=== PATIENT | female | born 1990 | race Caucasian/White ===

== ENCOUNTER 2016-11-15 10:39 | Emergency (ER) | payer OTHER, MEDICAID ==
[2016-11-15 11:02] LABS: BILIRUBIN,URINE NEGATIVE (NEGATIVE); PH,URINE 6.5 PH (5.0-7.5)
[2016-11-15 11:05] LABS: UA w/ MICROSCOPIC CHARGE YES
[2016-11-15 11:06] LABS: HCG UR QUAL NEGATIVE
[2016-11-15 11:14] LABS: WBC,URINE 0-3 /HPF (0-5)
[2016-11-15 11:15] LABS: UR CULTURE IF IND NOT INDICATED
[2016-11-15] MEDS ORDERED: cefTRIAXone 250 MG VIAL IM STA (12:12)
[2016-11-15] MEDS ORDERED: AZITHROMYCIN 250 MG TABLET PO STA (12:13)
[2016-11-15] MEDS ORDERED: AZITHROMYCIN 250 MG TABLET PO ONE (12:15)
[2016-11-15] MEDS ORDERED: LIDOCAINE 1% 2 ML VIAL ONE (12:16)
[2016-11-15] MEDS ORDERED: cefTRIAXone 250 MG VIAL ONE (12:16)
--- NOTE | 2016-11-15 12:21 | ED Physician Documentation ---
PD HPI FEMALE - Stated complaint Stated Complaint: FEMALE - Chief complaint Chief Complaint: General - History obtained from History obtained from: Patient - History of Present Illness Timing - onset: How many weeks ago (1) Timing - duration: Weeks (1) Timing - details: Gradual onset, Still present Associated symptoms: Pelvic pain, Vaginal bleeding, Vaginal discharge Contributing factors: IUD Similar symptoms before: Has not had sx before Recently seen: Not recently seen - Additional information Additional information: 26-year-old female has had an IUD in place for the past 3 years. She has recently developed a irregular vaginal bleeding and pain with intercourse including a sensation that the IUD is dislodged.She did have resolution of her bleeding and following that she has developed a brownish foul-smelling discharge. Review of Systems Constitutional: reports: Fatigue. denies: Fever, Chills Ears: denies: Ear pain Nose: denies: Congestion Throat: denies: Sore throat Respiratory: denies: Cough GI: reports: Abdominal Pain. denies: Vomiting : reports: Discharge. denies: Dysuria, Frequency Skin: denies: Rash Musculoskeletal: reports: Back pain. denies: Neck pain Neurologic: denies: Generalized weakness, Focal weakness PD PAST MEDICAL HISTORY - Past Medical History Past Medical History: Yes Cardiovascular: None Respiratory: Asthma Neuro: Headache/migraine Endocrine/Autoimmune: None GI: GERD, Ulcers : None HEENT: Chronic vision loss Psych: None Musculoskeletal: None Derm: None - Past Surgical History Past Surgical History: No General: EGD - Present Medications Home Medications: Ambulatory Orders Medication Instructions Recorded Confirmed Albuterol Sulfate [Albuterol 1 inh INH DAILY PRN 10/21/13 04/19/15 Sulfate Hfa] Ibuprofen [Motrin] 800 mg PO Q8H PRN #30 tablet 07/03/14 04/19/15 Copper [Paragard T 380-A] 1 each IY ONCE 04/19/15 04/19/15 Omeprazole 20 mg PO DAILY 04/19/15 04/19/15 Sumatriptan [Imitrex] 25 mg PO ONCE PRN 04/19/15 04/19/15 Oxycodone HCl/Acetaminophen 1 - 2 tab PO Q4H PRN #15 tablet 04/30/15 [Percocet 5-325 mg Tablet] oxyCODONE/ACET 5/325 [Percocet 5 1 each PO Q4-6H #14 tablet 11/15/16 mg/325 mg] - Allergies Allergies/Adverse Reactions: Allergies Allergy/AdvReac Type Severity Reaction Status Date / Time No Known Drug Allergies Allergy Verified 04/23/15 10:37 - Social History Does the pt smoke?: No Smoking Status: Never smoker Does the pt drink ETOH?: No Does the pt have substance abuse?: No - Immunizations Immunizations are current?: Yes - POLST Patient has POLST: No PD ED PE NORMAL - Vitals Vital signs reviewed: Yes (Normal) - General General: Alert and oriented X 3, Well developed/nourished, Other (The patient does appear to be in pain with hood maker tone and flattened affect) - HEENT HEENT: Atraumatic, PERRL - Respiratory Respiratory: No respiratory distress - Abdomen Abdomen: Soft, Other (There is marked suprapubic tenderness to palpation) - Female Female : Employee'S Representative present (Amber), Other (There is significant white discharge present and the string of the IUD is present as well this is grasped and the IUD is removed without difficulty there is some pain associated with this and slight bleeding. Samples of the discharge were obtained in a swab of the endocervix is obtained as well for GC and chlamydia. There is cervical motion tenderness present and no adnexal masses palpable.) - Derm Derm: Normal color, Warm and dry, No rash - Extremities Extremities: No deformity, No edema - Neuro Neuro: No motor deficit, No sensory deficit - Psych Psych: Normal mood, Normal affect Results - Vitals Vitals: Vital Signs - 24 hr 11/15/16 10:41 Temperature 36.9 C Heart Rate 94 Respiratory 18 Rate Blood Pressure 126/74 O2 Saturation 97 Oxygen O2 Source Room air - Labs Labs: Laboratory Tests 11/15/16 10:50 Urine Color YELLOW Urine Clarity CLEAR Urine pH 6.5 Ur Specific [place] 1.020 Urine Protein NEGATIVE Urine Glucose (UA) NEGATIVE Urine Ketones NEGATIVE Urine Occult Blood SMALL H Urine Nitrite NEGATIVE Urine Bilirubin NEGATIVE Urine Urobilinogen 0.2 (NORMAL) Ur Leukocyte Esterase TRACE H Urine RBC 0-5 Urine WBC 0-3 Ur Squamous Epith Cells MOD Squamous H Urine Bacteria Moderate H Ur Microscopic Review INDICATED Urine Culture Comments NOT INDICATED Urine HCG, Qual NEGATIVE PD MEDICAL DECISION MAKING - ED course Complexity details: reviewed old records, reviewed results, re-evaluated patient , considered differential, d/w patient ED course: 26-year-old female with a IUD in place for 3 years has now developed what appears to be infection and the patient desires to have her IUD removed. The ID was removed here in the emergency department and submitted for culture. The patient is treated with IM Rocephin and oral azithromycin and cultures are sent for GC and chlamydia. Departure - Departure Disposition: 01 Home, Self Care Clinical Impression: Pelvic infection secondary to IUC Qualifiers: Encounter type: initial encounter Qualified Code(s): T83.69XA - Infection and inflammatory reaction due to other prosthetic device, implant and graft in genital tract, initial encounter Condition: Stable Instructions: ED PID Follow-Up: Loren Velazquez DO [Provider Admit Priv/Credential] - Prescriptions: oxyCODONE/ACET 5/325 [Percocet 5 mg/325 mg] 1 each PO Q4-6H #14 tablet Comments: Today it appears you have an infection and your IUD has been removed at your request. You do not have control in place now and an alternative form of control should be used. Follow up in Dr. Velazquez's office this coming week or follow up here sooner if you are having worsening pain.
[2016-11-15 12:46] VITALS: BP 111/62
== END 2016-11-15 12:45 | disposition home or self-care (01) ==
LOC: ED 10:39
PROC: 0UPD7HZ Removal of Contraceptive Device from Uterus and Cervix, Via Natural or Artificial Opening (ICD-10-PCS; principal; 2016-11-15)
DX: T83.69XA Infection and inflammatory reaction due to other prosthetic device, implant and graft in genital tract, initial encounter (principal); Y84.8 Other medical procedures as the cause of abnormal reaction of the patient, or of later complication, without mention of misadventure at the time of the procedure; K21.9 Gastro-esophageal reflux disease without esophagitis; J45.909 Unspecified asthma, uncomplicated
CPT/HCPCS: 58301; 81001; 81025; 87086; 87210; 87491; 87591; 96372; 99283; A9270; 81003; 87071